=== PATIENT | male | born 1945 | race Caucasian/White ===

== ENCOUNTER 2018-06-21 12:36 | Emergency (ER) | payer MEDICARE, BC ==
[2018-06-21 12:52] VITALS: BP 139/73
--- NOTE | 2018-06-21 13:14 | UC ---
Respiratory Complaint HPI - HPI Summary HPI Summary: feeling sick with URI for 10 days, yesterday started having cough and fever, has hx of bronchitis, which is what he feels this is - History of Current Complaint Chief Complaint: UCRespiratory Stated Complaint: COUGH CHEST CONGESTION Time Seen by Provider: 06/21/18 13:01 Hx Obtained From: Patient, Family/Flying Teacher Onset/Duration: Gradual Onset Timing: Constant Pain Intensity: 0 Character: Cough: Nonproductive Aggravating Factors: Exertion, Deep Breaths Alleviating Factors: Nothing Associated Signs And Symptoms: Positive: Fever, URI, Nasal Congestion. Negative : Dizziness, Calf Pain, Calf Swelling - Allergies/Home Medications Allergies/Adverse Reactions: Allergies Allergy/AdvReac Type Severity Reaction Status Date / Time atenolol Allergy Unknown Verified 06/21/18 12:53 Reaction Details iopamidol [From [id number]] Allergy Hives Verified 06/21/18 12:53 spironolactone Allergy Swelling Verified 06/21/18 12:53 Home Medications: Home Medications Chloriceden 1 dose PO ONCE PRN 06/21/18 [History Confirmed 06/21/18] Chlorpheniramine/Dextromethorp [Cough-Cold Tablet] 1 tab PO ONCE PRN 06/21/18 [ History Confirmed 06/21/18] Irbesartan (NF) [Avapro (NF)] 150 mg PO DAILY 06/21/18 [History Confirmed ] PMH/Surg Hx/FS Hx/Imm Hx Previously Healthy: Yes Endocrine History: Dyslipidemia Cardiovascular History: Hypertension - Surgical History Surgical History: Yes Surgery Procedure, Year, and Place: appendectomy -1961 lt knee rt shoulder - Family History Known Family History: Positive: Hypertension - Social History Occupation: Retired Lives: With Family Alcohol Use: Rare Substance Use Type: None Smoking Status (MU): Never Smoked Tobacco Review of Systems All Other Systems Reviewed And Are Negative: Yes Constitutional: Positive: Fever, Fatigue Skin: Positive: Negative ENT: Positive: Sinus Congestion. Negative: Sore Throat Respiratory: Positive: Cough. Negative: Shortness Of Breath Cardiovascular: Positive: Negative. Negative: Palpitations Gastrointestinal: Positive: Negative Neurological: Positive: Negative Psychological: Positive: Negative Is Patient Immunocompromised?: No Physical Exam Triage Information Reviewed: Yes Appearance: Well-Appearing, No Pain Distress, Well-Nourished Vital Signs: Initial Vital Signs Temp 97.4 F 06/21/18 12:47 Pulse 77 06/21/18 12:47 Resp 18 06/21/18 12:47 BP 139/73 06/21/18 12:47 Pulse Ox 100 06/21/18 12:47 Vital Signs Reviewed: Yes Eyes: Positive: Conjunctiva Clear ENT: Positive: Nasal congestion Neck: Positive: No Lymphadenopathy Respiratory: Positive: Rhonchi, Other: - dry cough on exam Cardiovascular Exam: Normal Musculoskeletal Exam: Normal Neurological Exam: Normal Psychological Exam: Normal Skin Exam: Normal Skin: Negative: Rashes UC Diagnostic Evaluation - Laboratory O2 Sat by Pulse Oximetry: 100 Respiratory Course/Dx - Differential Dx/Diagnosis Differential Diagnosis/HQI/PQRI: Bronchitis, Influenza, Sinusitis Provider Diagnosis: Bronchitis Discharge - Sign-Out/Discharge Documenting (check all that apply): Patient Departure All imaging exams completed and their final reports reviewed: No Studies - Discharge Plan Condition: Good Disposition: HOME Prescriptions: Cefdinir cap * [Cefdinir 300 MG cap (NF)] 300 mg PO BID #20 cap Patient Education Materials: Acute Bronchitis (ED) Referrals: Ismael Wheat MD [Primary Care Provider] - 2 Days (recheck) Additional Instructions: drink plenty of fluids start antibiotic and take as directed return if your symptoms worsen - Billing Disposition and Condition Condition: GOOD Disposition: Home
== END 2018-06-21 13:21 | disposition home or self-care (01) ==
LOC: UCEAST 12:36
DX: J40 Bronchitis, not specified as acute or chronic (principal); I10 Essential (primary) hypertension; Z88.8 Allergy status to other drugs, medicaments and biological substances
CPT/HCPCS: 99212; G0463

== ENCOUNTER 2019-03-03 07:20 | Inpatient (IN) | payer MEDICARE, BC ==
--- NOTE | 2019-02-23 19:54 | HP ---
CC: Dr. Ismael Wheat * ADMISSION HISTORY AND PHYSICAL: DATE OF ADMISSION: 03/03/19 ATTENDING SURGEON: Dr. Trever De León.* (DICTATED BY TATA MESSER) CHIEF COMPLAINT: Intraabdominal mass. HISTORY OF PRESENT ILLNESS: This is a 73-year-old male with multiple medical problems, who had undergone a CT angiogram on 11/20/18 under the direction of Dr. Luna. This was for followup regarding his prior iliac stenting. Noted was a soft tissue mass in the abdomen to the right of midline measuring 4 x 4.4 x 4.2 cm. Compared with prior CT scan of 2006, it had increased in size. He has been asymptomatic in terms of any abdominal pain or GI symptoms, nausea, vomiting, crampy abdominal pain, change in bowels, or weight loss. He was seen initially by Dr. De León in December. His case was presented at tumor board and consensus was to obtain a biopsy of this lesion even though it was felt likely to be benign. The patient understands the indications for surgery, the risks, benefits, and alternatives. He would like to proceed as scheduled with laparoscopic biopsy of intraperitoneal mass. PAST MEDICAL HISTORY: Peripheral arterial disease (status post bilateral iliac stenting), hypertension, COPD, past smoking history, diverticulosis and diverticulitis, cholelithiasis (incidental finding, though the patient has had some intermittent symptoms that may be suggestive of biliary colic). PAST SURGICAL HISTORY: Previous surgeries include open appendectomy, bilateral iliac stenting in 2005, right rotator cuff repair, and left knee meniscal repair. No reported surgical or anesthesia complications. CURRENT MEDICATIONS: 1. Irbesartan 150 mg once daily. 2. Amlodipine 2.5 mg once daily. 3. Aspirin 81 mg once daily (the patient is directed to hold, his last dose will be today, 02/23/19). 4. Atorvastatin 10 mg one-half tablet once daily. 5. Citrucel 500 mg 2 tablets once daily. 6. Advair 250/50 one puff b.i.d. 7. ProAir HFA as needed (uses rarely). DRUG ALLERGIES: ATENOLOL (depression), IV CONTRAST (hives) (he has had a recent contrast study, which he tolerated well after contrast allergy prep). FAMILY HISTORY: Positive for pancreatic, colon, and lung cancer as well as melanoma in various family members. It is negative for anesthesia problems, bleeding or clotting disorders. SOCIAL HISTORY: The patient is . He has a daughter who lives at home. He is a retired cyber systems administrator. He is a former smoker with approximately a 50- pack- year history, who quit in 2005 (it sounds as though he has undergone low dose CT screening for lung nodules). He drinks alcohol rarely and denies any other recreational drug use. REVIEW OF SYSTEMS: General: No recent constitutional symptoms or acute illnesses. His weight has been stable. HEENT: No problems reported. Cardiovascular: He did undergo a Holter monitor in December of this year because of irregular heart rate noted on routine exam. Primary finding was that of frequent APCs. He does have some potential claudication symptoms with pain in the calf and hip with ambulation, but remains fairly active. He does have another followup with Dr. Luna in the near future. Respiratory: No recent exacerbations of his COPD. Smoking history as noted. GI: As above. No specific GI symptoms noted. Colonoscopy done approximately 5 years ago, described by the patient as being normal and that he is due for next exam soon. : No problems reported. Endocrine: No diabetes or thyroid dysfunction. 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 PHYSICAL EXAMINATION GENERAL: Well-nourished, well-developed male, in no acute distress. VITAL SIGNS: Height 5 feet 5 inches, weight 170 pounds. Blood pressure 122/76 , pulse 78, respirations 16. HEENT: Pupils equal and round, reactive. EOMs intact. No conjunctival pallor. Oropharynx: He has a partial upper denture. Remaining teeth in good repair. No intraoral lesions. NECK: No lymphadenopathy, thyromegaly, or masses. LUNGS: Clear to auscultation. No rales or wheezes. HEART: Regular rate and rhythm with occasional irregularly beat. No murmur noted. ABDOMEN: Soft, nontender to palpation. No palpable masses or organomegaly. Well- healed right lower quadrant scar. GENITALIA: Not examined. RECTAL: Not done. BACK: No spinous process or CVA tenderness. EXTREMITIES: No edema. Dorsalis pedis pulses easily palpable bilaterally. NEUROLOGICAL: Grossly intact. SKIN: Warm and dry. No suspicious rashes or lesions noted, though complete skin survey not performed. IMPRESSION: Intraperitoneal mass. PLAN: Laparoscopic biopsy of the intraperitoneal mass. TATA MESSER [id number]/[facility] #: [id number] MTDCelia
[~2019-03-03 07:20] MED LIST: Acetaminophen TAB* 325 MG PO ONE; Buffered Lidocaine 1% SYRIN* 1 ML/SYRINGE INTRADERM ONE; Lactated Ringers 1000 ML Bag* 1,000 ML IV SCH
[2019-03-03] MEDS ORDERED: metroNIDAZOLE IV 500 MG/100ML* 500 MG/100 ML BAG IVPB ONE (07:54)
[2019-03-03] MEDS ORDERED: Acetaminophen TAB* 325 MG ONE (07:54)
[2019-03-03] MEDS ORDERED: Buffered Lidocaine 1% SYRIN* 1 ML/SYRINGE INTRADERM ONE (07:54)
[2019-03-03] MEDS ORDERED: ceFAZolin 2 GM in NS PREMIX(*) 2 GM/100 ML BAG IVPB ONE (07:55)
[2019-03-03] MEDS ORDERED: fentaNYL* 50 MCG/ML 2 ML VIAL (100 MCG VIAL) ONE ×4 (09:25→12:50)
[2019-03-03] MEDS ORDERED: Midazolam* 1 MG/ML 2 ML VIAL (2 MG) ONE ×2 (09:25→10:00)
[2019-03-03] MEDS ORDERED: Famotidine IV* 10 MG/ML 2 ML (20 mg) ONE (09:57)
[2019-03-03] MEDS ORDERED: Bupivacaine 0.25% EPI 200,000* 30 ML SDV ONE (09:58)
[2019-03-03] MEDS ORDERED: Ketorolac INJ* 30 MG/ML 1 ML VIAL ONE (10:07)
[2019-03-03] MEDS ORDERED: Propofol* 10 MG/ML 20 ML BTL ONE (10:07)
[2019-03-03] MEDS ORDERED: Dexamethasone IV* 4 MG/ML 1 ML (4 MG) ONE (10:07)
[2019-03-03] MEDS ORDERED: Ondansetron INJ* 2 MG/ML VIAL ONE (10:07)
[2019-03-03] MEDS ORDERED: Cisatracurium* 2 MG/ML MDV 5 ML ONE (10:07)
[2019-03-03] MEDS ORDERED: Succinylcholine* 20 MG/ML 10 ML VIAL ONE (10:07)
[2019-03-03] MEDS ORDERED: EPHEDrine (Pressors)* 50 MG/ML VIAL ONE (10:21)
[2019-03-03] MEDS ORDERED: DiMENhydriNATE IV* 50 MG/ML VIAL IV PUSH PRN (10:27)
[2019-03-03] MEDS ORDERED: diPHENhydraMINE IV* 50 MG/ML 1 ml VIAL (BENADRYL) IV PRN (10:27)
[2019-03-03] MEDS ORDERED: Levalbuterol 0.63MG/3ML NEB* UNIT OF USE INH PRN (10:27)
[2019-03-03] MEDS ORDERED: Ondansetron INJ* 2 MG/ML VIAL IV PRN (10:27)
[2019-03-03] MEDS ORDERED: HYDROcodone/ACETAMIN 5-325 MG* 1 TAB PO PRN (10:27)
[2019-03-03] MEDS ORDERED: Naloxone* 0.4 MG/ML 1 ML VIAL IV PRN (10:27)
[2019-03-03] MEDS ORDERED: Acetaminophen IV 1GM/100ML * 100 ML ONE (11:56)
[2019-03-03] MEDS: fentaNYL* 50 MCG/ML 2 ML VIAL (100 MCG VIAL) IV PRN ×5 (12:35→12:55)
[2019-03-03] MEDS ORDERED: diPHENhydraMINE IV* 50 MG/ML 1 ml VIAL (BENADRYL) ONE (12:51)
[2019-03-03] MEDS ORDERED: Acetaminophen TAB* 325 MG PO PRN (13:10)
[2019-03-03] MEDS ORDERED: HYDROcodone/ACETAMIN 5-325 MG* 1 TAB ONE (13:11)
[2019-03-03] MEDS ORDERED: PTO:Albuterol HFA INHALER* 8 gm MDI INH PRN ×3 (13:21→17:20)
[2019-03-03] MEDS ORDERED: HYDROmorphone PCA* 20 MG/20 ML PCA.SYRING ONE (13:31)
[2019-03-03] MEDS ORDERED: Naloxone* 0.4 MG/ML 1 ML VIAL IV PUSH PRN (13:54)
[2019-03-03] MEDS ORDERED: HYDROmorphone PCA* 20 MG/20 ML PCA.SYRING PCA SCH (14:00)
[2019-03-03] MEDS ORDERED: oxyCODONE/Acetamin 5/325 MG* TAB PO PRN (16:06)
[2019-03-03] MEDS: Heparin VIAL(*) 5000 UNITS/ML VIAL (FIVE THOUSAND) SUBCUT SCH ×2 (16:13→22:10)
[2019-03-03] MEDS: Losartan TAB* 25 MG PO SCH (17:43)
[2019-03-03] MEDS: Mometasone/Formoter 200/5 MDI INH SCH (19:59)
--- NOTE | 2019-03-03 22:53 | OP ---
CC: Ismael Wheat MD; Rosario Luna MD * DATE OF OPERATION: 03/03/19 - ROOM #340 DATE OF : 41 SURGEON: Trever De León MD INSPECTORS AND REGULATORY OFFICERS: Dr. Bacon. ANESTHESIOLOGIST: Dr. Lynn. ANESTHESIA: General endotracheal. PRE-OP DIAGNOSIS: Mesenteric mass. POST-OP DIAGNOSIS: Mesenteric mass. OPERATIVE PROCEDURE: Laparoscopy and conversion to laparotomy and biopsy of mesenteric mass. ESTIMATED BLOOD LOSS: 30 mL. IV FLUIDS: Crystalloid. SPECIMEN: 1. Cyst fluid. 2. Incisional biopsy of mesenteric mass. DRAINS: None. COMPLICATIONS: None. COUNTS: The instrument, needle, and sponge counts were correct. DESCRIPTION OF PROCEDURE: The patient was brought to the operating room and placed on the table supine. Sequential compression devices were placed on both lower extremities. General anesthesia was administered. Appropriate intravenous antibiotics were administered and he was prepped and draped in the usual sterile fashion. A time-out was performed. Local anesthetic was infiltrated into the skin and soft tissue prior to making each incision. Entry into the abdomen was through a transumbilical vertical incision using an open technique. After accessing the peritoneal cavity, a 5- mm trocar was placed and carbon dioxide was insufflated to a pressure of 15 mmHg. Under direct visualization, a 5-mm trocar was placed in the left upper quadrant superior to the umbilicus and then one at above the umbilical level in the left abdomen. An additional 5-mm trocar was subsequently placed in the left lower quadrant. There were adhesions of omentum in the right lower quadrant and this was taken down using a combination of sharp and blunt dissection as well as with LigaSure. The omentum was retracted cephalad along the transverse colon. Jejunum was inspected. There appeared to be a small bowel diverticulum within the jejunum. This had a broad base. Within the mesentery of the jejunum there, then became apparent a 4-cm mass. This was somewhat ill-defined and in order to better define it, the dissection of the peritoneum of the mesentery within which it was sitting was performed with a combination of cautery dissection and LigaSure. Subsequently, it was decided to aspirate this and so an aspiration needle was placed through the umbilical port into the mass and aspiration revealed bloody fluid. The needle was removed. It was decided to biopsy the wall of this apparent cystic structure and then during an additional mobilization, there was bleeding from the tissues in the adjacent mesentery and it was not clear where this was coming from. At this point, it was decided that it would be safest to perform a laparotomy and perform the biopsy open. The midline laparotomy was created using the cautery and the peritoneal cavity was entered and then the small bowel and mass were delivered up into the wound. The ballooning appeared to be from some vessels in the mesentery and these were able to be ligated with 2-0 Vicryl ties. The mass itself was then incised with the cautery and it appeared to have the appearance of an enlarged lymph node. A piece of this was excised and it was at least 2 cubic centimeters. The tissue was then cauterized and Surgicel was placed and pressure applied until hemostasis was achieved. After assuring hemostasis, the viscera was returned to the abdominal cavity. Omentum was drawn beneath the wound and then the wound was closed with a #1 PDS running. The skin incision was closed with kendra and 4-0 Monocryl was used around the umbilical region in a subcuticular fashion. The laparoscopic port sites were also closed with kendra. Dressings were applied to all the wounds. The patient was extubated uneventfully and transferred to the recovery room in a stable condition. [id number]/[facility] #: [id number] RAZIA
[2019-03-04] MEDS: Lactated Ringers 1000 ML Bag* 1,000 ML IV SCH ×2 (02:31→15:30)
[2019-03-04] MEDS: Heparin VIAL(*) 5000 UNITS/ML VIAL (FIVE THOUSAND) SUBCUT SCH ×3 (06:44→22:35)
--- NOTE | 2019-03-04 09:16 | PN ---
Progress Note - Progress Note Date of Service: 03/04/19
[2019-03-04] MEDS: amLODIPine TAB* 5 MG PO SCH (09:54)
[2019-03-04] MEDS: Mometasone/Formoter 200/5 MDI INH SCH ×2 (09:55→19:39)
--- NOTE | 2019-03-04 11:46 | PN ---
Progress Note - Progress Note Date of Service: 03/04/19 SOAP: Subjective:NO FLATUS,NO N/V;TOLERATED SCRAMBLED EGGS AND COFFEE;NO DYSURIA; FEELS VERY BLOATED;GOOD PAIN CONTROL WITH COLD HEADER OPERATOR [] Objective: Vital Signs Temp 97.9 F 03/04/19 07:00 Pulse 85 03/04/19 07:00 Resp 16 03/04/19 10:00 BP 143/63 03/04/19 07:00 Pulse Ox 96 03/04/19 10:00 Intake & Output 03/03/19 03/04/19 03/04/19 18:59 06:59 18:59 Intake Total 2258 Output Total 450 900 Balance 1808 -900 Weight 167 lb Intake: IV Fluids 858 LR 858 Oral 1400 Output: Urine 450 900 Other: Estimated Void Large LUNGS:CLEAR BILAT;HEART:RRR;ABD:HYPOACTIVE BS,DISTENDED;MIDLINE AND LEFT LATERAL INCISIONS C/D/I WITH CIARRA,NO ACTIVE BLEEDING;EXT:NONTENDER CALVES, SCDS ON [] Assessment:POD#1 S/P LAPAROSCOPY CONVERTED TO LAPAROTOMY AND BIOPSY OF MESENTERIC MASS;AWAITING GI FUNCTION [] Plan:AMBULATE SOFT JOSE FRANCISCO CONTINUE COLD HEADER OPERATOR UNTIL IMPROVED GI FUNCTION THEN CAN TRY PO ANALGESICS POSSIBLE DISCH 03/05/19 []
[2019-03-04] MEDS: Ondansetron INJ* 2 MG/ML VIAL IV PRN ×2 (16:08→20:13)
[2019-03-04] MEDS ORDERED: Lidocaine 2% JELLY* 6 ML JELLY TOPICAL ONE (16:39)
[2019-03-04 17:22] LABS: Hematocrit 39 % (42-52); Hemoglobin 13.2 g/dL (14.0-18.0); Mean Corpuscular HGB Conc 34 g/dL (31-36); Mean Corpuscular Hemoglobin 34 pg (27-31); Mean Corpuscular Volume 99 fL (80-94); Platelet Count 179 10^3/uL (150-450); Red Blood Count 3.94 10^6 /uL (4.18-5.48); Red Cell Distribution Width 13 % (10-15); White Blood Count 12.6 10^3/uL (3.5-10.8)
[2019-03-04 17:38] LABS: BUN/Creatinine Ratio 20.2 (8-20); Calcium 8.8 mg/dL (8.6-10.3); EGFR African American 75.8 (>60); EGFR Non-African American 62.6 (>60)
[2019-03-04] MEDS: Losartan TAB* 25 MG PO SCH (17:40)
[2019-03-04 17:49] LABS: Potassium 5.2 mmol/L (3.5-5.0)
--- NOTE | 2019-03-04 19:00 | PN ---
Progress Note - Progress Note Date of Service: 03/04/19 Note: Subjective: Called on see patient C/O abdominal distention, abd pain Objective: On exam patient was found to be markedly distended, Tympanic to percussion. O2 sats in the 90's pulses in the 80's. patient is POD 1 from excision of an abdominal mass has been on RISK MANAGER, drinking fluids all day, - flatus Assesment: Post operative ileus Plan: I placed an NG Tube via the left nare with 550cc of out put. patient felt some relief immedeately. Post procedure Labs: Laboratory Last Values WBC 12.6 10^3/uL (3.5-10.8) H 03/04/19 17:12 RBC 3.94 10^6 /uL (4.18-5.48) L 03/04/19 17:12 Hgb 13.2 g/dL (14.0-18.0) L 03/04/19 17:12 Hct 39 % (42-52) L 03/04/19 17:12 MCV 99 fL (80-94) H 03/04/19 17:12 MCH 34 pg (27-31) H 03/04/19 17:12 MCHC 34 g/dL (31-36) 03/04/19 17:12 RDW 13 % (10-15) 03/04/19 17:12 Plt Count 179 10^3/uL (150-450) 03/04/19 17:12 MPV 8.0 fL (7.4-10.4) 03/04/19 17:12 Sodium 133 mmol/L (135-145) L 03/04/19 17:12 Potassium 5.2 mmol/L (3.5-5.0) H 03/04/19 17:12 Chloride 100 mmol/L (101-111) L 03/04/19 17:12 Carbon Dioxide 29 mmol/L (22-32) 03/04/19 17:12 Anion Gap 4 mmol/L (2-11) 03/04/19 17:12 BUN 23 mg/dL (6-24) 03/04/19 17:12 Creatinine 1.14 mg/dL (0.67-1.17) 03/04/19 17:12 Est GFR ( Amer) 75.8 (>60) 03/04/19 17:12 Est GFR (Non-Af Amer) 62.6 (>60) 03/04/19 17:12 BUN/Creatinine Ratio 20.2 (8-20) H 03/04/19 17:12 Glucose 163 mg/dL (70-100) H 03/04/19 17:12 Calcium 8.8 mg/dL (8.6-10.3) 03/04/19 17:12 CXR showed good placement of NGT Hold PM Losartan. Above D/W and patient was also seen by Dr De León.
[2019-03-04] MEDS: Phenol 1.4% Spray* 177 ML BTL TOPICAL PRN (20:02)
[2019-03-05] MEDS: Heparin VIAL(*) 5000 UNITS/ML VIAL (FIVE THOUSAND) SUBCUT SCH ×3 (05:22→22:21)
[2019-03-05] MEDS: Lactated Ringers 1000 ML Bag* 1,000 ML IV SCH (05:22)
[2019-03-05] MEDS: Phenol 1.4% Spray* 177 ML BTL TOPICAL PRN ×3 (05:26→19:02)
[2019-03-05] MEDS: Mometasone/Formoter 200/5 MDI INH SCH ×2 (08:22→20:10)
--- NOTE | 2019-03-05 08:59 | PN ---
Progress Note - Progress Note Date of Service: 03/05/19 SOAP: Subjective: Pt uncomfortable in bed C/O distention and discomfort from NGT NGT continues with High output Report of minimal flatus this am[] Objective: Laboratory Last Values WBC 12.6 10^3/uL (3.5-10.8) H 03/04/19 17:12 RBC 3.94 10^6 /uL (4.18-5.48) L 03/04/19 17:12 Hgb 13.2 g/dL (14.0-18.0) L 03/04/19 17:12 Hct 39 % (42-52) L 03/04/19 17:12 MCV 99 fL (80-94) H 03/04/19 17:12 MCH 34 pg (27-31) H 03/04/19 17:12 MCHC 34 g/dL (31-36) 03/04/19 17:12 RDW 13 % (10-15) 03/04/19 17:12 Plt Count 179 10^3/uL (150-450) 03/04/19 17:12 MPV 8.0 fL (7.4-10.4) 03/04/19 17:12 Sodium 133 mmol/L (135-145) L 03/04/19 17:12 Potassium 5.2 mmol/L (3.5-5.0) H 03/04/19 17:12 Chloride 100 mmol/L (101-111) L 03/04/19 17:12 Carbon Dioxide 29 mmol/L (22-32) 03/04/19 17:12 Anion Gap 4 mmol/L (2-11) 03/04/19 17:12 BUN 23 mg/dL (6-24) 03/04/19 17:12 Creatinine 1.14 mg/dL (0.67-1.17) 03/04/19 17:12 Est GFR ( Amer) 75.8 (>60) 03/04/19 17:12 Est GFR (Non-Af Amer) 62.6 (>60) 03/04/19 17:12 BUN/Creatinine Ratio 20.2 (8-20) H 03/04/19 17:12 Glucose 163 mg/dL (70-100) H 03/04/19 17:12 Calcium 8.8 mg/dL (8.6-10.3) 03/04/19 17:12 Vital Signs Temp 99.1 F 03/05/19 07:37 Pulse 92 03/05/19 08:26 Resp 20 03/05/19 08:26 BP 153/76 03/05/19 07:37 Pulse Ox 93 03/05/19 08:26 Intake & Output 03/04/19 03/05/19 03/05/19 18:59 06:59 18:59 Intake Total 986 0 0 Output Total 1100 1075 550 Balance -114 -1075 -550 Intake: IV Fluids 986 LR 986 Oral 0 0 Output: NG Tube Drainage Amount 750 400 Urine 1100 325 150 HEENT: NGT in place left nare Chest: CTA CVS: RRR ABD: distended, Tympanic to percussion incisions C/D/I kendra in place no errythema, eccymosis, EXT: calves soft, NT[] Assessment: S/P excision of abdominal mass, post operative ileus[] Plan: Change IVF to D5 LR @ 125, flush NGT Hourly, repeat labs, dressings removed, wounds open to air continued observation awaiting resolution of ileus Pt also seen and examined by Dr De León all questions were answered
[2019-03-05] MEDS: amLODIPine TAB* 5 MG PO SCH (09:31)
[2019-03-05 09:32] LABS: ABS Basophils 0.1 10^3/ul (0-0.2); ABS Lymphocytes 1.2 10^3/ul (1.0-4.8); ABS Monocytes 0.6 10^3/ul (0-0.8); ABS Neutrophils 6.6 10^3/ul (1.5-7.7); Eosinophil % 0.5 %; Hematocrit 37 % (42-52); Lymphocyte % 14.2 %; Mean Corpuscular HGB Conc 35 g/dL (31-36); Mean Corpuscular Hemoglobin 34 pg (27-31); Mean Corpuscular Volume 98 fL (80-94); Mean Platelet Volume 8.3 fL (7.4-10.4); Nucleated Red Blood Cells % 0.1; Platelet Count 153 10^3/uL (150-450); Red Cell Distribution Width 13 % (10-15); White Blood Count 8.6 10^3/uL (3.5-10.8)
[2019-03-05 10:07] LABS: BUN/Creatinine Ratio 18.4 (8-20); Calcium 8.6 mg/dL (8.6-10.3); EGFR African American 90.2 (>60); EGFR Non-African American 74.6 (>60); Potassium 4.3 mmol/L (3.5-5.0)
[2019-03-05] MEDS: D5LR 1000 ML BAG* 1,000 ML IV SCH ×2 (10:46→18:59)
[2019-03-05 11:34] LABS: Magnesium 1.7 mg/dL (1.9-2.7)
[2019-03-05] MEDS ORDERED: HYDROmorphone INJ* 0.5 MG/0.5 ML SYRINGE IV PRN (15:29)
[2019-03-05] MEDS: Losartan TAB* 25 MG PO SCH (18:59)
[2019-03-06] MEDS: D5LR 1000 ML BAG* 1,000 ML IV SCH ×3 (03:03→20:10)
[2019-03-06] MEDS: Heparin VIAL(*) 5000 UNITS/ML VIAL (FIVE THOUSAND) SUBCUT SCH ×3 (05:23→21:36)
[2019-03-06] MEDS: amLODIPine TAB* 5 MG PO SCH (09:10)
--- NOTE | 2019-03-06 09:45 | PN ---
Progress Note - Progress Note Date of Service: 03/06/19 SOAP: Subjective:c/o"heartburn";passing a little flatus;rates abd discomfort at 10/10 [] Objective: Vital Signs Temp 98.0 F 03/06/19 09:03 Pulse 74 03/06/19 09:03 Resp 16 03/06/19 09:03 BP 166/51 03/06/19 09:03 Pulse Ox 99 03/06/19 09:03 Intake & Output 03/05/19 03/06/19 03/06/19 18:59 06:59 18:59 Intake Total 2374 988 Output Total 2450 2300 Balance -76 -1312 Intake: IV Fluids 2374 988 D5W LR 988 LR 2374 Oral 0 Output: NG Tube Drainage Amount 1250 900 Urine 1200 1400 lungs:clear bilat;heart:RRR;abd:hypoactive bs;distended but softer;incisions intact with kendra,no infection;tender but no guarding;ext:nontender calves,no edema [] Assessment:POD#3 Lap converted to open biopsy mesenteric mass;awaiting improved GI function;large NG output that is very dark brown;is ambulating and using inspiron [] Plan:PPI ordered;?hold Heparin check CBC,P3 update []
[2019-03-06 10:29] LABS: ABS Basophils 0.1 10^3/ul (0-0.2); ABS Lymphocytes 1.1 10^3/ul (1.0-4.8); ABS Monocytes 0.6 10^3/ul (0-0.8); ABS Neutrophils 8.5 10^3/ul (1.5-7.7); Eosinophil % 0.3 %; Hematocrit 38 % (42-52); Hemoglobin 13.1 g/dL (14.0-18.0); Lymphocyte % 10.5 %; Mean Corpuscular HGB Conc 34 g/dL (31-36); Mean Corpuscular Hemoglobin 34 pg (27-31); Mean Corpuscular Volume 98 fL (80-94); Mean Platelet Volume 7.7 fL (7.4-10.4); Platelet Count 151 10^3/uL (150-450); Red Blood Count 3.91 10^6 /uL (4.18-5.48); Red Cell Distribution Width 13 % (10-15); White Blood Count 10.3 10^3/uL (3.5-10.8)
[2019-03-06 10:47] LABS: BUN/Creatinine Ratio 13.2 (8-20); Calcium 8.8 mg/dL (8.6-10.3); EGFR African American 98.3 (>60); EGFR Non-African American 81.2 (>60); Potassium 4.4 mmol/L (3.5-5.0)
[2019-03-06] MEDS: Pantoprazole IV* 40 MG IV SCH (11:14)
[2019-03-06] MEDS: Mometasone/Formoter 200/5 MDI INH SCH ×2 (11:33→19:27)
[2019-03-06] MEDS: Losartan TAB* 25 MG PO SCH (18:20)
[2019-03-07] MEDS: D5LR 1000 ML BAG* 1,000 ML IV SCH (04:11)
[2019-03-07] MEDS: Heparin VIAL(*) 5000 UNITS/ML VIAL (FIVE THOUSAND) SUBCUT SCH ×2 (05:18→13:55)
[2019-03-07] MEDS: amLODIPine TAB* 5 MG PO SCH (08:43)
[2019-03-07] MEDS: Mometasone/Formoter 200/5 MDI INH SCH (08:44)
[2019-03-07] MEDS: Pantoprazole IV* 40 MG IV SCH (08:44)
--- NOTE | 2019-03-07 09:20 | PN ---
Progress Note - Progress Note Date of Service: 03/07/19 SOAP: Subjective: Feels better. +flatus/-BM. Hungry. No pain. Some heartburn. Objective: Vital Signs Temp 98 F 03/07/19 08:16 Pulse 71 03/07/19 08:16 Resp 16 03/07/19 08:16 BP 119/90 03/07/19 08:16 Pulse Ox 93 03/07/19 08:16 Gen: NAD ABd: softly distended; incision c/d/i; no erythema; NT; +BS Intake & Output 03/06/19 03/07/19 03/07/19 18:59 06:59 18:59 Intake Total 0 250 Output Total 625 400 Balance -625 -150 Intake: Oral 0 250 Output: NG Tube Drainage Amount 250 Urine 375 400 Laboratory Results - last 24 hr 03/06/19 03/06/19 10:20 10:20 WBC 10.3 RBC 3.91 L Hgb 13.1 L Hct 38 L MCV 98 H MCH 34 H MCHC 34 RDW 13 Plt Count 151 MPV 7.7 Neut % (Auto) 82.2 Lymph % (Auto) 10.5 [place] % (Auto) 6.3 Eos % (Auto) 0.3 Baso % (Auto) 0.7 Absolute Neuts (auto) 8.5 H Absolute Lymphs (auto) 1.1 Absolute Monos (auto) 0.6 Absolute Eos (auto) 0.0 Absolute Basos (auto) 0.1 Absolute Nucleated RBC 0.0 Nucleated RBC % 0.0 Sodium 138 Potassium 4.4 Chloride 97 L Carbon Dioxide 38 H Anion Gap 3 BUN 12 Creatinine 0.91 Est GFR ( Amer) 98.3 Est GFR (Non-Af Amer) 81.2 BUN/Creatinine Ratio 13.2 Glucose 141 H Calcium 8.8 Path: LN with NET, low grade. d/w pt and . Assessment: POD#4 s/p lap converted to open bx mesenteric mass. 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 Resolving ileus. Plan: Will adv diet as tolerated. [facility] Oncology consult requested and spoke to Dr. Mathew. Likely home tomorrow.
[2019-03-07] MEDS: Losartan TAB* 25 MG PO SCH ×2 (15:52→17:14)
[2019-03-07 17:40] VITALS: BP 148/48
--- NOTE | 2019-03-07 21:49 | CONS ---
CC: Dr. Ismael Wheat; Dr. 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 HISTORY OF PRESENT ILLNESS: Mr. Caro is a 73-year-old male who has had a previous iliac stenting done for peripheral artery disease. This was done bilaterally by Dr. Jacinto Pereira at [facility] in 2005. He underwent an ultrasound on 11/18/18 which was an aortoiliac vascular ultrasound. This revealed a complex cystic and solid lesion in the right hemiabdomen of unclear etiology and reportedly at that time not seen on the previous CT scan. Contrast- enhanced CT scan of the abdomen and pelvis was recommended. Two days later on 11/20/18, the patient underwent aorta with runoff CTA of the abdomen and pelvis. This revealed a 4.4 x 4.2 cm heterogeneous soft tissue mass in the mesentry of the small bowel. It did not appear to be of vascular origin. It is reported it has not been seen on the prior CT scan of November 2006, but in retrospect was there evidence of approximate 1.8 cm in size at that time. Various other issues were reported on the CT scan in regard to his vascular supply. The case was discussed at our multi- disciplinary tumor conference and recommendation was from him to have this biopsied, although there was a possibility that it would be benign. Given its location, this needed to be done as a surgical procedure. The patient was admitted to the hospital on 03/03/19 and underwent surgery on that date. This was initially a laparoscopic procedure, but needed to be converted to laparotomy and with biopsy of the mesenteric mass. Approximately 2 cubic centimeters was removed. The 4 cm mass was noted and appeared to be in the mesentery of the jejunum. 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 Tumor is still present at the edge. It was positive for CD-56, synaptophysin, and chromogranin. Ki67 index was less than 1% . The patient is recovering well from surgery and is seen in his hospital room along with his , daughter, and sister. PAST MEDICAL HISTORY: 1. Peripheral artery disease, status post bilateral iliac stenting. 2. Hypertension. 3. COPD. 4. Diverticulosis. 5. Diverticulitis. 6. Cholelithiasis. 7. Status post appendectomy. 8. Bilateral iliac stenting in 2005. 9. Right rotator cuff repair. 10. Left knee meniscal repair. MEDICATIONS: At the time of admission include: 1. Irbesartan. 2. Amlodipine. 3. Aspirin. 4. Atorvastatin. 5. Advair. 6. ProAir. ALLERGIES: To ATENOLOL and mild allergy to IV CONTRAST, but can have a contrast with premedications. FAMILY HISTORY: Positive for multiple malignancies including pancreatic, colon , lung, and melanoma. SOCIAL HISTORY: The patient is . He is a retired branch office administrator. Former smoker, 50-pack year history, quitting in 2005. He has had a chest CT in 2016 for solitary pulmonary nodule. This was compared to a prior CT scan of 2009 and was unchanged and 5 mm in size. Occasional alcohol. REVIEW OF SYSTEMS: Energy level has been good. He remains quite active. There are some underlying PACs, but no other more significant heart rhythms. Last issue is recently in terms of claudication than he has had in the past. No significant GI or symptoms. No significant psychiatric or neurologic issues. Review of systems is otherwise negative. PHYSICAL EXAM: A 73-year-old male, in no acute distress. Vital Signs: Blood pressure 159/56, pulse 69, afebrile. HEENT: PERRL. EOMI. No erythema or exudates. No palpable cervical, supraclavicular, or axillary adenopathy. Lungs : Clear. Heart: Regular rate and rhythm without murmurs, rubs, or gallops. Abdomen: Soft. Mild tenderness along the surgical scar. No masses or organomegaly. Extremities: No edema. Back: No CVA or spinal tenderness. 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 Clearly, this had to have spread to this area from a primary site. Most likely, this would have been a small bowel carcinoid, although one can never be sure. It is possible it came from somewhere else in the GI tract and less likely even that it would have come from a lung or thymus. He has no symptoms whatsoever of carcinoid syndrome, specifically no significant diarrhea, hot flashes/night sweats, or flushing. It is explained to the patient and his family that given a 12-year history of presumed slow growth of this tumor, having been 1.8 cm in 2005 and now 4.5 cm, that it is unlikely that he will have developed significant problems from this. It would be useful to obtain baseline chromogranin blood test and baseline 24- hour urine for 5-HIAA. If these are normal or only mildly elevated, it would not be necessary to follow them given the timeframe since this mass was originally seen. Given the fact we do not know whether the growth from 1.8 to 4.5 cm occurred slowly over the entire 12-year period or if this lesion was more stable and then grew more recently, it would be reasonable to obtain a CT scan again in 1 year to better evaluate this area. The CT scan both from 2006 and from 2019 are personally reviewed and there certainly is no evidence in the bowel, large or small, of any lesions that would likely be the primary site. The patient and his family are satisfied with the results of this conversation and are quite pleased, and it is likely this will be followed only and not need any further therapy. [id number] #: [id number] MTDD
--- NOTE | 2019-04-17 15:54 | DS ---
CC: Ismael Wheat MD; German Mathew MD * DISCHARGE SUMMARY: DATE OF ADMISSION: 03/04/19 DATE OF DISCHARGE: 03/07/19 DISCHARGE DIAGNOSES: 1. 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 2. Postoperative ileus. 3. Peripheral arterial disease. 4. Hypertension. 5. Chronic obstructive pulmonary disease. OPERATIVE PROCEDURE: Laparoscopy and conversion to laparotomy with biopsy of mesenteric mass on 03/03/19. HOSPITAL COURSE: This is a 73-year-old gentleman with above mentioned illnesses was brought to the operating room for elective laparoscopic biopsy of mesenteric mass. Please refer to his history and physical examination as well as the operative report for full details. Because he had conversion to open procedure, he was admitted to the hospital and stayed overnight and subsequently did develop an ileus which took several days to resolve. His final pathology revealed a carcinoid tumor metastatic to mesenteric lymph node. Oncology consultation was obtained from Dr. Mathew and that was on 03/07/19 which was also the date of his discharge. At the time of discharge, he was having no pain and denied use of pain medications. He is passing flatus. Diet was advanced as tolerated and he he was subsequently discharged home in stable condition. DISCHARGE MEDICATIONS: 1. Citrucel 2 tablets every morning. 2. Amlodipine 2.5 mg every morning. 3. Irbesartan was 50 mg every evening. 4. Advair Diskus 1 puff twice daily. 5. Albuterol inhaler every 6 hours as needed. 6. Atorvastatin 2.5 mg every evening. 7. Aspirin 81 mg every morning. He had no additional laboratory tests pending. He was provided with written postoperative instructions. He is asked to follow up in the [facility] office in 7 to 10 days from discharge. He is advised to resume regular diet. [id number] #: [id number] MTDD
== END 2019-03-07 18:20 | disposition home or self-care (01) | DRG 357 ==
LOC: OR 07:20 → SSU 15:22 → OBSVTOIN 03-04 20:00 → INTOOBSV 03-04 20:00
PROVIDERS: ADMIT Surgery; ATTEND Surgery
PROC: 0DBV0ZX Excision of Mesentery, Open Approach, Diagnostic (ICD-10-PCS; principal; 2019-03-04)
PROC: 0WJG4ZZ Inspection of Peritoneal Cavity, Percutaneous Endoscopic Approach (ICD-10-PCS; 2019-03-04)
DX: C7A.011 Malignant carcinoid tumor of the jejunum (principal); K56.7 Ileus, unspecified; K80.20 Calculus of gallbladder without cholecystitis without obstruction; I10 Essential (primary) hypertension; D35.00 Benign neoplasm of unspecified adrenal gland; K57.10 Diverticulosis of small intestine without perforation or abscess without bleeding; J44.9 Chronic obstructive pulmonary disease, unspecified; I73.9 Peripheral vascular disease, unspecified; Z95.828 Presence of other vascular implants and grafts; Z91.041 Radiographic dye allergy status; Z87.891 Personal history of nicotine dependence; Z80.1 Family history of malignant neoplasm of trachea, bronchus and lung; Z88.8 Allergy status to other drugs, medicaments and biological substances; Z85.828 Personal history of other malignant neoplasm of skin; Z53.31 Laparoscopic surgical procedure converted to open procedure
CPT/HCPCS: 36415; 71045; 80048; 83735; 85025; 85027; 88112; 88184; 88187; 88188; 88189; 88305; 88333; 88341; 88342; 88360; 94640; A9270-GY; J0330; J0690; J1100; J1170; J1200; J1644; J1885; J2250; J2405; J2704; J3010